=== PATIENT | female | born 1990 | race Caucasian/White ===

== ENCOUNTER 2017-11-14 12:32 | Emergency (ER) | payer MEDICAID ==
[~2017-11-14] VITALS: Ht 165.1 cm; Wt 66.5 kg
[2017-11-14] MEDS ORDERED: FAMOTIDINE 20 MG/2 ML ONE (13:18)
[2017-11-14] MEDS ORDERED: ONDANSETRON ODT 4 MG ONE (13:18)
[2017-11-14 13:30] LABS: BASOPHILS # (AUTO) 0.02 x10^3/uL (0-0.1); BASOPHILS % (AUTO) 0 % (0-1); EOSINOPHILS # (AUTO) 0.02 x10^3/uL (0-0.4); EOSINOPHILS % (AUTO) 0 % (1-7); LYMPHOCYTES # (AUTO) 2.68 x10^3/uL (1-3.4); LYMPHOCYTES % (AUTO) 31 % (22-44); MD NO; MEAN CORPUSCULAR HEMOGLOBIN 32.4 pg (27.0-34.8); MEAN CORPUSCULAR HGB CONC 34.3 g/dL (32.4-35.8); MEAN CORPUSCULAR VOLUME 94.5 fL (80-100); MEAN PLATELET VOLUME 9.2 fL (7.4-10.4); MONOCYTES # (AUTO) 0.66 x10^3/uL (0.2-0.8); MONOCYTES % (AUTO) 8 % (2-9); NEUTROPHILS # (AUTO) 5.15 x10^3/uL (1.8-6.8); NEUTROPHILS % (AUTO) 60 % (42-75); PLATELET COUNT 285 x10^3/uL (130-400); RED BLOOD COUNT 5.12 x10^6/uL (3.82-5.3); RED CELL DISTRIBUTION WIDTH 12.5 % (9.6-15.2)
[2017-11-14] MEDS ORDERED: FAMOTIDINE 20 MG/2 ML IVP ONE (13:30)
[2017-11-14] MEDS ORDERED: SODIUM CHLORIDE 0.9% 1,000ML IVBOLUS ONE (13:30)
[2017-11-14] MEDS ORDERED: SODIUM CHLORIDE FLUSH 10ML SYR IVF ONE (13:30)
[2017-11-14] MEDS ORDERED: ONDANSETRON ODT 4 MG PO ONE (13:30)
[2017-11-14 13:45] LABS: ALANINE AMINOTRANSFERASE 22 U/L (12-78); ALBUMIN 4.1 g/dL (3.4-5.0); ANION GAP 10 mmol/L (5-15); CHLORIDE 107 mmol/L (98-107)
[2017-11-14 13:50] LABS: ALKALINE PHOSPHATASE 109 U/L (45-117); BILIRUBIN,TOTAL 0.5 mg/dL (0.2-1.0); CREATININE 0.77 mg/dL (0.55-1.02); TOTAL PROTEIN 8.1 g/dL (6.4-8.2)
[2017-11-14 13:54] LABS: CULTURE INDICATED? YES; MICROSCOPIC INDICATED
[2017-11-14 14:04] VITALS: BP 120/66
== END 2017-11-14 14:53 | disposition home or self-care (01) ==
LOC: ED 14:50
DX: K29.00 Acute gastritis without bleeding (principal); N30.00 Acute cystitis without hematuria; F17.210 Nicotine dependence, cigarettes, uncomplicated
CPT/HCPCS: 36415; 76700; 80053; 81001; 83690; 84703; 85025; 87086; 96361; 96374; 99285; J7030; Q0162; S0028

== ENCOUNTER 2017-11-27 20:13 | Emergency (ER) | payer MEDICAID ==
[2017-11-27 20:16] VITALS: BP 114/80
== END 2017-11-27 21:05 | disposition home or self-care (01) ==
LOC: ED 20:48
DX: J06.9 Acute upper respiratory infection, unspecified (principal)
CPT/HCPCS: 71046; 99284

== ENCOUNTER 2018-04-24 07:39 | Emergency (ER) | payer MEDICAID ==
[~2018-04-24] VITALS: Ht 165.1 cm; Wt 57.2 kg
[2018-04-24 08:03] VITALS: BP 111/77
--- NOTE | 2018-04-24 08:16 | NUR ---
PT PRESENTED TO ED WITH N/V AND DIARRHEA SEVERAL TIMES SINCE THIS AM. PT PLACED IN CONTACT ISOLATION. PT AOX4. PT PLACED ON BP AND CONT. PULSE OXIMETER. ASSESSMENT COMPLETED. AWAITING .
--- NOTE | 2018-04-24 08:20 | NUR ---
REPORT GIVEN TO DIAMOND CROFT
[2018-04-24] MEDS ORDERED: ONDANSETRON ODT 8 MG PO ONE (08:30)
[2018-04-24] MEDS ORDERED: ONDANSETRON ODT 8 MG ONE (08:31)
--- NOTE | 2018-04-24 08:32 | NUR ---
patient safe in bed, has been assessed by ERP, RADHAN, VSS, PWD, medicated with odt zofran per MAR, no questions at this time, discharge orders entered by
--- NOTE | 2018-04-24 08:50 | NUR ---
discharge instructions reviewed, questions answered, patient ambulatory to discharge desk,.
== END 2018-04-24 08:54 | disposition home or self-care (01) ==
LOC: ED 08:48
DX: R11.2 Nausea with vomiting, unspecified (principal); R19.7 Diarrhea, unspecified
CPT/HCPCS: 99283; Q0162

== ENCOUNTER 2019-05-28 18:33 | Emergency (ER) | payer SELFPAY ==
[~2019-05-28] VITALS: Ht 160 cm; Wt 54.9 kg
--- NOTE | 2019-05-28 18:59 | NUR ---
DR CASTANON BS FOR EXAM.
[2019-05-28] MEDS ORDERED: BIRTH CONTROL (19:15)
--- NOTE | 2019-05-28 19:16 | NUR ---
C/O NAUSEA THAT STARTED LAST NOC. VOMITED LAST NOC. DENIES ABD PAIN. NO MEDS TAKEN FOR SX. LAST BM: 05/26/18. LMP: 04/16/2019. LAST ORAL INTAKE: LUNCH TODAY.
[2019-05-28 19:23] LABS: BASOPHILS # (AUTO) 0.01 x10^3/uL (0-0.1); BASOPHILS % (AUTO) 0 % (0-1); EOSINOPHILS # (AUTO) 0.08 x10^3/uL (0-0.4); EOSINOPHILS % (AUTO) 1 % (1-7); LYMPHOCYTES % (AUTO) 44 % (22-44); MD NO; MEAN CORPUSCULAR HEMOGLOBIN 33.3 pg (27.0-34.8); MEAN CORPUSCULAR VOLUME 97.9 fL (80-100); MEAN PLATELET VOLUME 8.8 fL (7.4-10.4); MONOCYTES # (AUTO) 0.59 x10^3/uL (0.2-0.8); MONOCYTES % (AUTO) 8 % (2-9); NEUTROPHILS # (AUTO) 3.25 x10^3/uL (1.8-6.8); NEUTROPHILS % (AUTO) 46 % (42-75); PLATELET COUNT 214 x10^3/uL (130-400); RED BLOOD COUNT 4.32 x10^6/uL (3.82-5.3); RED CELL DISTRIBUTION WIDTH 12.6 % (9.6-15.2)
[2019-05-28 19:32] LABS: ALBUMIN 3.7 g/dL (3.4-5.0); ANION GAP 4 mmol/L (5-15); CALCIUM 9.1 mg/dL (8.5-10.1); CHLORIDE 112 mmol/L (98-107); CREATININE 0.69 mg/dL (0.55-1.02)
[2019-05-28 20:26] LABS: MICROSCOPIC NOT IND
[2019-05-28 20:27] LABS: CULTURE INDICATED? NO
[2019-05-28 20:54] VITALS: BP 97/57
--- NOTE | 2019-05-28 21:38 | NUR ---
PT DRESSED AND SITTING ON END OF [facility]UST. [facility]. INFORMED PT THAT ERP WOULD LIKE HER TO DRINK WATER TO SEE IF SHE CAN KEEP IT DOWN. WATER BOTTLE PROVIDED TO PT.
== END 2019-05-28 21:54 | disposition left against medical advice (07) ==
LOC: ED 19:45
DX: R11.2 Nausea with vomiting, unspecified (principal)
CPT/HCPCS: 36415; 80048; 81003; 82040; 84703; 85025; 99283